=== PATIENT | male | born 1995 | race Caucasian/White ===

== ENCOUNTER 2016-11-14 15:33 | Emergency (ER) | payer OTHER ==
[~2016-11-14] VITALS: Ht 185.4 cm; Wt 71.5 kg
[2016-11-14 15:38] VITALS: BP 119/66
== END 2016-11-14 17:28 | disposition home or self-care (01) ==
LOC: EME 15:33
DX: S62.655A Nondisplaced fracture of middle phalanx of left ring finger, initial encounter for closed fracture (principal); W21.01XA Struck by football, initial encounter; Y93.61 Activity, american tackle football
CPT/HCPCS: 73140; 99281; 99283